=== PATIENT | female | born 1950 | race Caucasian/White ===

== ENCOUNTER → 2018-08-08 10:39 | Outpatient (CLI) | payer OTHER, SELFPAY ==
[2018-08-08 14:04] LABS: Free T4, Direct Thyroxine 1.52 ng/dL (0.78-2.19)
[2018-08-08 14:17] LABS: Thyroid Stimulating Hormone 1.67 uIU/mL (0.47-4.68)
[2018-08-08 14:26] LABS: Free T3, Triiodothyronine Free 3.43 pg/mL (2.77-5.27)
== END ==
PROVIDERS: PCP Student in an Organized Health Care Education/Training Program; Visit Provider Student in an Organized Health Care Education/Training Program
DX: E03.9 Hypothyroidism, unspecified (principal); E55.9 Vitamin D deficiency, unspecified; E78.2 Mixed hyperlipidemia
CPT/HCPCS: 36415; 84439; 84443; 84481

== ENCOUNTER → 2018-08-10 07:11 | Outpatient (CLI) | payer OTHER, SELFPAY ==
[2018-08-10 08:18] LABS: Appearance Urine UA CLEAR; Bilirubin Urine UA NEGATIVE (NEGATIVE); Color Urine UA YELLOW; Glucose Urine UA NEGATIVE (Negative); Ketones Urine UA NEGATIVE (NEGATIVE); Leukocyte Esterase Urine UA NEGATIVE (NEGATIVE); Nitrite Urine UA NEGATIVE (Negative); Occult Blood Urine UA 3+ (Negative); Protein Urine UA NEGATIVE (Negative); Specific Gravity Urine UA 1.025 (1.000-1.035); Urobilinogen Urine UA 0.2 E.U./dL (0.2); pH Urine UA 5.5 (4.5-8.0)
[2018-08-10 08:31] LABS: Blood Urea Nitrogen 28 mg/dL (7-17); Calcium 9.4 mg/dL (8.4-10.2); Carbon Dioxide 28 mmol/L (22-32); Chloride 102 mmol/L (98-107); Cholesterol 243 mg/dL (140-199); Creatine Kinase 88 U/L (30-135); Estimated Glomerular Filt Rate > 60.0 mL/min (>60); Glucose 103 mg/dL (80-110); HDL Cholesterol 73 mg/dL (40-60); HEMOLYSIS < 15 (0-50); LDL Cholesterol Calculated 156 mg/dL (<100); Magnesium 1.9 mg/dL (1.6-2.3); Potassium 4.6 mmol/L (3.4-5.1); Sodium 138 mmol/L (137-145); Triglycerides 69 mg/dL (35-150)
[2018-08-10 08:45] LABS: Bacteria Urine Few (2-10); Culture Indicated Urine Cult Not Indicated; RBC Urine 5-10/HPF (0-5/HPF); Squamous Epithelial Cell Urine 0-1 /HPF; WBC Urine 0-1/HPF (0-5/HPF)
[2018-08-10 08:47] LABS: Vitamin D 25 Hydroxy (D3) 37.3 ng/mL (30.0-100.0)
== END ==
PROVIDERS: PCP Student in an Organized Health Care Education/Training Program; Visit Provider Student in an Organized Health Care Education/Training Program
DX: E03.9 Hypothyroidism, unspecified (principal); E55.9 Vitamin D deficiency, unspecified; E78.2 Mixed hyperlipidemia; N05.9 Unspecified nephritic syndrome with unspecified morphologic changes; R25.2 Cramp and spasm
CPT/HCPCS: 36415; 80048; 80061; 81001; 82306; 82550; 83735

== ENCOUNTER 2019-07-07 10:28 | Emergency (ER) | payer OTHER, SELFPAY ==
[2019-07-07 11:02] VITALS: BP 146/73; PULSE 81; RESP 18; TEMP 36.9; O2SAT 99; BMI 29.0
--- NOTE | 2019-07-07 11:38 | DI.CT.S_ITS ---
PROCEDURE: CT KIDNEY URETER BLADDER (KUB) INDICATIONS: urinary retention TECHNIQUE: Noncontrast 5 mm thick sections acquired from the diaphragms to the symphysis. 5 mm thick coronal and sagittal reformats were then performed. For radiation dose reduction, the following was used: automated exposure control, adjustment of mA and/or kV according to patient size. COMPARISON: [facility], CT, THORAX WITH CONTRAST, 08/11/2010, 11:42. [facility], CT, THORAX WITHOUT CONTRAST, 04/20/2014, 9:14. FINDINGS: Image quality: Excellent. Lung bases: Lung bases are clear. Heart size is normal. Urinary system: Both kidneys are normal in size. No kidney stones. No hydronephrosis or perinephric fat stranding. Both ureters appear non-dilated throughout their expected courses. Bladder wall thickness is normal; no calcified bladder stones. Other solid organs: Liver is normal in size. Gallbladder appears normal. Pancreas is normal in contours. Spleen is normal in size. No new adrenal nodules, and the low density adrenal nodule on the right has not changed appreciably over [address] studies including from August of 2010. Peritoneum and bowel: Unenhanced bowel loops demonstrate normal wall thickness and caliber. No free fluid or air. Nodes and vessels: No retroperitoneal or mesenteric adenopathy by size criteria. Aorta and inferior vena cava are normal in caliber. Abdominal wall: No ventral hernias. Pelvis: No free pelvic fluid. No inguinal hernias or adenopathy. A Solis catheter empties the bladder lumen. Bones: No suspicious bony lesions. No vertebral body compression fractures. IMPRESSION: No sign of urinary retention however a Solis catheter is in place. No urinary tract stone is found. Stable appearing 2.0 x 3.3 cm right adrenal low-density nodule, from August of 2010. No followup recommended. Dictated by: Noe Ramírez M.D. on 07/07/2019 at 13:29 Approved by: Noe Ramírez M.D. on 07/07/2019 at 13:32
--- NOTE | 2019-07-07 11:44 | ED_ITS ---
HPI - Female Genitourinary <KEMI Darden - Last Filed: 07/07/19 21:24> General Chief complaint: Urogenital-Female Stated complaint: NEEDS TO GO TO BATHROOM/CANNOT,BLEEDING Time Seen by Provider: 07/07/19 11:20 Source: patient Mode of arrival: Ambulatory Limitations: no limitations History of Present Illness HPI Narrative: This is a 68-year-old female, nonsmoker, who presents to ED with significant other with chief complain of unable to urinate with nice flow but just dribbling and noticed blood when she went to toilet and wiped this morning. Patient denies history of any kidney disease or kidney stones. Patient reports the urination with good flow was yesterday morning. Patient does feel urgency but does not endorses pain, fever, nausea or vomiting, or flank pain. Patient denies severe constipation either. Related Data Home Medications Medication Instructions Recorded Confirmed aspirin 81 mg PO DAILY #0 08/10/10 07/07/19 Biotin 5,000 mcg 1 tab PO DAILY 09/26/18 07/07/19 Dandelion 1 cap PO DAILY 09/26/18 07/07/19 ascorbic acid (vitamin C) 500 mg 500 mg PO DAILY 09/26/18 07/07/19 chewable tablet cholecalciferol (vitamin D3) 50 4,000 unit PO DAILY 09/26/18 07/07/19 mcg (2,000 unit) capsule multivitamin 1 tab PO DAILY 09/26/18 07/07/19 Previous Rx's Medication Instructions Recorded albuterol sulfate 90 mcg/actuation 2 puff INHALATION Q4-6H PRN #8 gram 05/05/19 aerosol inhaler benzonatate 100 mg capsule 100 mg PO BID-TID PRN #20 cap 05/05/19 levothyroxine 88 mcg tablet 88 mcg PO QAM #90 tab 05/18/19 nitrofurantoin monohyd/m-cryst 100 mg PO BID 5 Days #10 cap 07/07/19 phenazopyridine [Pyridium] 100 mg PO Q8H #6 tab 07/07/19 Allergies Allergy/AdvReac Type Severity Reaction Status Date / Time venom-honey bee Allergy Severe Swelling Verified 07/07/19 11:02 [BEE VENOM (HONEY BEE)] at the site of the sting Penicillins [PENICILLINS] Allergy Unknown Patient Verified 07/07/19 11:02 was a child when it happened Review of Systems <KEMI Darden - Last Filed: 07/07/19 21:24> Review of Systems Narrative: General: Denies fever, chills, fatigue, malaise, sweats. HEENT: Denies sinus pain, ear pain, sore throat, difficulty swallowing, dizziness. Respiratory: Denies dyspnea, cough, wheezing, hemoptysis, sputum. Cardiovascular: Denies chest pain, palpitations, orthopnea, edema. Gastrointestinal: Denies nausea, vomiting, abdominal pain, diarrhea, constipation, melena. : Denies dysuria, frequency, incontinence, (+) hematuria, (+) urinary retention. Musculoskeletal: Denies weakness, joint pain or bony pain. Skin: Denies rash, skin lesions, or other. Neurologic: Denies weakness, headache, numbness, change in speech, confusion, seizures, incoordination. Psychiatric: No concerning psychosocial issues. 12-point review of systems is negative except for those stated above. Patient History <KEMI Darden - Last Filed: 07/07/19 21:24> Medical History Glomerulonephritis (Chronic) Hypothyroidism (Acute) Family History Father Pulmonary emphysema, unspecified emphysema type Smoking Status: Never smoker Substance Use Type: does not use Exam <KEMI Darden - Last Filed: 07/07/19 21:24> Narrative Exam Narrative: GEN: Alert, oriented x 3, well appearing and nourished, apprehensive. Head: Normal cephalic, atraumatic. No scalp or temporal tenderness, palpable ma ss or rash. EYES: Pupils are equal, round, and reactive to light and accommodation. Extraocular muscles are intact bilaterally. There is no subconjunctival hemorrhage, exudate and sclera non-icteric. ENT: Hearing grossly intact. Nose without bleeding, purulent discharge or deviation. Mucous membrane moist, no mucosal lesion. Throat without erythema, tonsillar hypertrophy or exudate. Uvula in midline, airway patent. Neck: Trachea in midline. No JVD, non-tender without lymphadenopathy. No masses or thyroid megaly. Supple, non-tender and no meningeal signs. CARDIAC: Normal regular rate and rhythm without murmurs, gallops, or rubs. No chest wall tenderness. No peripheral edema, cyanosis or pallor. Capillary refill is less than 2 seconds. RESPIRATORY: Lungs are clear to auscultate bilaterally. No cough, wheezes, rales, or rhonchi. No stridor, respiratory distress, increase work of breathing, or accessary muscle used. ABD: Abdomen soft, nontender and non-distended. No guarding or rebound tenderness to palpate. Bowel sounds are normal in all 4 quadrants. There is no palpable masses or organomegaly. EXT: Full painless ROM of all extremities with no loss of sensation, strength, effusion or edema. SKIN: Warm, dry, normal color for patient. No erythema, lesions or rash over visible areas. BACK: Nontender without deformity or crepitance. No flank tenderness. NEUROLOGICAL: Alert and oriented to place, time and person. Sensation and motor function intact bilaterally. No facial droops, dysphasia. PSYCHIATRIC: Good judgement and reason, without hallucinations, abnormal affect or abnormal behaviors during the examination. Initial Vital Signs Initial Vital Signs: Vital Signs Temperature 98.5 F 07/07/19 11:02 Pulse Rate 81 07/07/19 11:02 Respiratory Rate 18 07/07/19 11:02 Blood Pressure 146/73 H 07/07/19 11:02 Pulse Oximetry 99 07/07/19 11:02 <Alma Gonzalez DO - Last Filed: 07/10/19 08:12> Initial Vital Signs Initial Vital Signs: Vital Signs Temperature 98.5 F 07/07/19 11:02 Pulse Rate 81 07/07/19 11:02 Respiratory Rate 18 07/07/19 11:02 Blood Pressure 146/73 H 07/07/19 11:02 Pulse Oximetry 99 07/07/19 11:02 Scores <KEMI Darden - Last Filed: 07/07/19 21:24> GCS Independence coma scale eye opening: Spontaneous Sofiya coma scale verbal response: Orientated Independence coma scale motor response: Obey commands Sofiya coma scale total score: 15 Course <KEMI Darden - Last Filed: 07/07/19 21:24> Orders Ordered: Discontinued Medications Sodium Chloride (Normal Saline 0.9%) 1,000 mls @ 1,000 mls/hr IV BOLUS ONE Stop: 07/07/19 13:33 Last Infusion: 07/07/19 14:55 Dose: 0 mls/hr Documented by: Admin: 07/07/19 12:36 Dose: 1,000 mls/hr Documented by: ISABELLA Ceftriaxone Sodium/Dextrose (Rocephin) 1 gm in 50 mls @ 100 mls/hr IV NOW ONE Stop: 07/07/19 14:04 Last Admin: 07/07/19 13:57 Dose: Not Given Documented by: JOSEPHINE Ceftriaxone Sodium/Dextrose (Rocephin) 1 gm in 50 mls @ 100 mls/hr IV NOW ONE Stop: 07/07/19 14:06 Last Admin: 07/07/19 13:58 Dose: Not Given Documented by: JOSEPHINE Ceftriaxone Sodium/Dextrose (Rocephin) 1 gm in 50 mls @ 100 mls/hr IV NOW ONE Stop: 07/07/19 14:22 Last Infusion: 07/07/19 14:56 Dose: 0 mls/hr Documented by: Admin: 07/07/19 13:56 Dose: 100 mls/hr Documented by: JOSEPHINE Phenazopyridine HCl (Pyridium) 100 mg PO NOW ONE Stop: 07/07/19 13:36 Last Admin: 07/07/19 13:56 Dose: 100 mg Documented by: JOSEPHINE Vital Signs Vital signs: Vital Signs - 8 hr 07/07/19 14:30 Pulse Rate 71 Respiratory Rate 15 Blood Pressure [Right Arm] 141/68 H Pulse Oximetry 97 <Alma Gonzalez DO - Last Filed: 07/10/19 08:12> Orders Ordered: Discontinued Medications Sodium Chloride (Normal Saline 0.9%) 1,000 mls @ 1,000 mls/hr IV BOLUS ONE Stop: 07/07/19 13:33 Last Infusion: 07/07/19 14:55 Dose: 0 mls/hr Documented by: Admin: 07/07/19 12:36 Dose: 1,000 mls/hr Documented by: ISABELLA Ceftriaxone Sodium/Dextrose (Rocephin) 1 gm in 50 mls @ 100 mls/hr IV NOW ONE Stop: 07/07/19 14:04 Last Admin: 07/07/19 13:57 Dose: Not Given Documented by: JOSEPHINE Ceftriaxone Sodium/Dextrose (Rocephin) 1 gm in 50 mls @ 100 mls/hr IV NOW ONE Stop: 07/07/19 14:06 Last Admin: 07/07/19 13:58 Dose: Not Given Documented by: JOSEPHINE Ceftriaxone Sodium/Dextrose (Rocephin) 1 gm in 50 mls @ 100 mls/hr IV NOW ONE Stop: 07/07/19 14:22 Last Infusion: 07/07/19 14:56 Dose: 0 mls/hr Documented by: Admin: 07/07/19 13:56 Dose: 100 mls/hr Documented by: JOSEPHINE Phenazopyridine HCl (Pyridium) 100 mg PO NOW ONE Stop: 07/07/19 13:36 Last Admin: 07/07/19 13:56 Dose: 100 mg Documented by: JOSEPHINE Vital Signs Vital signs: Vital Signs - 8 hr 07/07/19 14:30 Pulse Rate 71 Respiratory Rate 15 Blood Pressure [Right Arm] 141/68 H Pulse Oximetry 97 MDM - Female Genitourinary <KEMI Darden - Last Filed: 07/07/19 21:24> Differential Diagnosis Differential diagnosis: Likely urinary tract infection, cystitis and other (Kidney stone, bladder neoplasm) Medical Records Attestation: I reviewed the patient's medical records. Lab Data Attestation: I reviewed the patient's lab results. Result diagrams: 07/07/19 12:42 07/07/19 12:42 Labs: Lab Results 07/07/19 07/07/19 07/07/19 Range/Units 12:06 12:42 12:42 WBC 9.9 (4.5-11.0) X10^3/uL RBC 4.45 (4.0-5.2) X10^6/uL Hgb 13.9 (12.0-16.0) g/dL Hct 41.3 (36-46) % MCV 93.0 (80-100) fL MCH 31.3 (26-34) PG MCHC 33.6 (30-36) % RDW 12.7 (11.6-14.8) % Plt Count 170 (150-400) X10^3/uL Neut % (Auto) 84.0 H (50-75) % Lymph % (Auto) 9.4 L (25-40) % Valley % (Auto) 6.2 (3-14) % Eos % (Auto) 0.1 L (2-4) % Baso % (Auto) 0.3 (0-2) % Neut # (Auto) 8300 H (4762-5615) /uL Lymph # (Auto) 900 L (0276-2116) /uL Valley # (Auto) 600 (0-900) /uL Eos # (Auto) 0 (0-450) /uL Baso # (Auto) 0 (0-100) /uL Sodium 137 (137-145) mmol/L Potassium 4.2 (3.4-5.1) mmol/L Chloride 102 (98-107) mmol/L Carbon Dioxide 27 (22-32) mmol/L BUN 20 H (7-17) mg/dL Creatinine 0.70 (0.52-1.04) mg/dL Estimated GFR > 60.0 (>60) mL/min BUN/Creatinine Ratio 28.6 H (6-22) Glucose 102 (80-110) mg/dL Calcium 9.4 (8.4-10.2) mg/dL Total Bilirubin 0.5 (0.2-1.3) mg/dL AST 30 (14-36) IU/L ALT 21 (<35) IU/L Alkaline Phosphatase 88 (38-126) U/L Total Creatine Kinase (30-135) U/L CK-MB (CK-2) CK-MB (CK-2) Rel Index Total Protein 7.6 (6.3-8.2) g/dL Albumin 4.2 (3.5-5.0) g/dL Globulin 3.4 (1.7-4.1) g/dL Albumin/Globulin Ratio 1.2 (1.0-2.8) Urine Color Brown Urine Appearance Turbid Urine pH 6.5 (4.5-8.0) Ur Specific [place] 1.025 (1.000-1.035) Urine Protein 3+ H (Negative) Urine Glucose (UA) Trace H (Negative) g/dL Urine Ketones Trace H (NEGATIVE) Urine Occult Blood 3+ H (Negative) Urine Nitrate Positive (Negative) Urine Bilirubin 2+ H (NEGATIVE) Ur Bilirubin Confirm Negative (Negative) Urine Urobilinogen 2.0 H (0.2) E.U./dL Ur Leukocyte Esterase 3+ H (NEGATIVE) Urine RBC >100/hpf H (0-5/HPF) Urine WBC 10-30/hpf H (0-5/HPF) Ur Squamous Epith Cells 0-1 /hpf (0-5/HPF) Amorphous Sediment 2+ Urine Bacteria Many (>30) H (None) Urine Mucus 1+ H (Negative) Ur Culture Indicated? Specimen cultured 07/07/19 Range/Units 12:42 WBC (4.5-11.0) X10^3/uL RBC (4.0-5.2) X10^6/uL Hgb (12.0-16.0) g/dL Hct (36-46) % MCV (80-100) fL MCH (26-34) PG MCHC (30-36) % RDW (11.6-14.8) % Plt Count (150-400) X10^3/uL Neut % (Auto) (50-75) % Lymph % (Auto) (25-40) % Valley % (Auto) (3-14) % Eos % (Auto) (2-4) % Baso % (Auto) (0-2) % Neut # (Auto) (9589-9193) /uL Lymph # (Auto) (0964-9695) /uL Valley # (Auto) (0-900) /uL Eos # (Auto) (0-450) /uL Baso # (Auto) (0-100) /uL Sodium (137-145) mmol/L Potassium (3.4-5.1) mmol/L Chloride (98-107) mmol/L Carbon Dioxide (22-32) mmol/L BUN (7-17) mg/dL Creatinine (0.52-1.04) mg/dL Estimated GFR (>60) mL/min BUN/Creatinine Ratio (6-22) Glucose (80-110) mg/dL Calcium (8.4-10.2) mg/dL Total Bilirubin (0.2-1.3) mg/dL AST (14-36) IU/L ALT (<35) IU/L Alkaline Phosphatase (38-126) U/L Total Creatine Kinase 84 (30-135) U/L CK-MB (CK-2) TNP CK-MB (CK-2) Rel Index TNP Total Protein (6.3-8.2) g/dL Albumin (3.5-5.0) g/dL Globulin (1.7-4.1) g/dL Albumin/Globulin Ratio (1.0-2.8) Urine Color Urine Appearance Urine pH (4.5-8.0) Ur Specific [place] (1.000-1.035) Urine Protein (Negative) Urine Glucose (UA) (Negative) g/dL Urine Ketones (NEGATIVE) Urine Occult Blood (Negative) Urine Nitrate (Negative) Urine Bilirubin (NEGATIVE) Ur Bilirubin Confirm (Negative) Urine Urobilinogen (0.2) E.U./dL Ur Leukocyte Esterase (NEGATIVE) Urine RBC (0-5/HPF) Urine WBC (0-5/HPF) Ur Squamous Epith Cells (0-5/HPF) Amorphous Sediment Urine Bacteria (None) Urine Mucus (Negative) Ur Culture Indicated? Imaging Data CT-KUB: Radiologist's Impression: [place] [address] CT Scan Report Signed Patient: Michelle Walton LMR#: [id number] : 2Acct:[id number] Age/Sex: 68 / FDate of Service: 07/07/19 Loc: ED Accession Number: [id number] Procedure: CT kidney ureter bladder (KUB) Ordering Provider: Jamaal Beasley PROCEDURE: CT KIDNEY URETER BLADDER (KUB) INDICATIONS: urinary retention TECHNIQUE: Noncontrast 5 mm thick sections acquired from the diaphragms to the symphysis. 5 mm thick coronal and sagittal reformats were then performed. For radiation dose reduction, the following was used: automated exposure control, adjustment of mA and/or kV according to patient size. COMPARISON: [facility], CT, THORAX WITH CONTRAST, 08/11/2010, 11:42. [facility], CT, THORAX WITHOUT CONTRAST, 04/20/2014, 9:14. FINDINGS: Image quality: Excellent. Lung bases: Lung bases are clear. Heart size is normal. Urinary system: Both kidneys are normal in size. No kidney stones. No hydronephrosis or perinephric fat stranding. Both ureters appear non-dilated throughout their expected courses. Bladder wall thickness is normal; no calcified bladder stones. Other solid organs: Liver is normal in size. Gallbladder appears normal. Pancreas is normal in contours. Spleen is normal in size. No new adrenal nodules, and the low density adrenal nodule on the right has not changed appreciably over [address] studies including from August of 2010. Peritoneum and bowel: Unenhanced bowel loops demonstrate normal wall thickness and caliber. No free fluid or air. Nodes and vessels: No retroperitoneal or mesenteric adenopathy by size criteria. Aorta and inferior vena cava are normal in caliber. Abdominal wall: No ventral hernias. Pelvis: No free pelvic fluid. No inguinal hernias or adenopathy. A Solis catheter empties the bladder lumen. Bones: No suspicious bony lesions. No vertebral body compression fractures. IMPRESSION: No sign of urinary retention however a Solis catheter is in place. No urinary tract stone is found. Stable appearing 2.0 x 3.3 cm right adrenal low- density nodule, from August of 2010. No followup recommended. Dictated by: Noe Ramírez M.D. on 07/07/2019 at 13:29 Approved by: Noe Ramírez M.D. on 07/07/2019 at 13:32 MDM Narrative Medical decision making narrative: This is a 68-year-old female who presents to ED with hematuria and unable to void for about 24 hour except dribbling in small amounts. Patient denied constitutional symptoms, abdominal pain, flank disc omfort. And showed about 150 mL of urine and Solis catheter was inserted and obtained dark reddish brown urine in Solis catheter. UA showed ketones, 3+ blood, 2+ bilirubin, many bacteria and 3+ urine leukocyte esterase without nitrates. Urine culture is pending. CT KUB was obtained no signs of urinary retention, no kidney stones, no hydronephrosis or perinephric fat stranding. Patient has known adrenal nodule on the right which has not changed since August 2010. It is likely her hematuria and dysuria is from a cystitis. Patient was treated with IV antibiotic medication Rocephin and discharged to home with nitrofurantoin b.i.d. dose for 5 day course and Pyridium PRN t.i.d. for 2 days for urinary discomfort. Return precautions were discussed with the patient and patient verbalized understanding and advised to follow-up with PCP. <Alma Gonzalez, DO - Last Filed: 07/10/19 08:12> Lab Data Labs: Lab Results 07/07/19 07/07/19 07/07/19 Range/Units 12:06 12:42 12:42 WBC 9.9 (4.5-11.0) X10^3/uL RBC 4.45 (4.0-5.2) X10^6/uL Hgb 13.9 (12.0-16.0) g/dL Hct 41.3 (36-46) % MCV 93.0 (80-100) fL MCH 31.3 (26-34) PG MCHC 33.6 (30-36) % RDW 12.7 (11.6-14.8) % Plt Count 170 (150-400) X10^3/uL Neut % (Auto) 84.0 H (50-75) % Lymph % (Auto) 9.4 L (25-40) % Valley % (Auto) 6.2 (3-14) % Eos % (Auto) 0.1 L (2-4) % Baso % (Auto) 0.3 (0-2) % Neut # (Auto) 8300 H (3858-2643) /uL Lymph # (Auto) 900 L (6080-3040) /uL Valley # (Auto) 600 (0-900) /uL Eos # (Auto) 0 (0-450) /uL Baso # (Auto) 0 (0-100) /uL Sodium 137 (137-145) mmol/L Potassium 4.2 (3.4-5.1) mmol/L Chloride 102 (98-107) mmol/L Carbon Dioxide 27 (22-32) mmol/L BUN 20 H (7-17) mg/dL Creatinine 0.70 (0.52-1.04) mg/dL Estimated GFR > 60.0 (>60) mL/min BUN/Creatinine Ratio 28.6 H (6-22) Glucose 102 (80-110) mg/dL Calcium 9.4 (8.4-10.2) mg/dL Total Bilirubin 0.5 (0.2-1.3) mg/dL AST 30 (14-36) IU/L ALT 21 (<35) IU/L Alkaline Phosphatase 88 (38-126) U/L Total Creatine Kinase (30-135) U/L CK-MB (CK-2) CK-MB (CK-2) Rel Index Total Protein 7.6 (6.3-8.2) g/dL Albumin 4.2 (3.5-5.0) g/dL Globulin 3.4 (1.7-4.1) g/dL Albumin/Globulin Ratio 1.2 (1.0-2.8) Urine Color Brown Urine Appearance Turbid Urine pH 6.5 (4.5-8.0) Ur Specific [place] 1.025 (1.000-1.035) Urine Protein 3+ H (Negative) Urine Glucose (UA) Trace H (Negative) g/dL Urine Ketones Trace H (NEGATIVE) Urine Occult Blood 3+ H (Negative) Urine Nitrate Positive (Negative) Urine Bilirubin 2+ H (NEGATIVE) Ur Bilirubin Confirm Negative (Negative) Urine Urobilinogen 2.0 H (0.2) E.U./dL Ur Leukocyte Esterase 3+ H (NEGATIVE) Urine RBC >100/hpf H (0-5/HPF) Urine WBC 10-30/hpf H (0-5/HPF) Ur Squamous Epith Cells 0-1 /hpf (0-5/HPF) Amorphous Sediment 2+ Urine Bacteria Many (>30) H (None) Urine Mucus 1+ H (Negative) Ur Culture Indicated? Specimen cultured 07/07/19 Range/Units 12:42 WBC (4.5-11.0) X10^3/uL RBC (4.0-5.2) X10^6/uL Hgb (12.0-16.0) g/dL Hct (36-46) % MCV (80-100) fL MCH (26-34) PG MCHC (30-36) % RDW (11.6-14.8) % Plt Count (150-400) X10^3/uL Neut % (Auto) (50-75) % Lymph % (Auto) (25-40) % Valley % (Auto) (3-14) % Eos % (Auto) (2-4) % Baso % (Auto) (0-2) % Neut # (Auto) (3171-3330) /uL Lymph # (Auto) (4101-7758) /uL Valley # (Auto) (0-900) /uL Eos # (Auto) (0-450) /uL Baso # (Auto) (0-100) /uL Sodium (137-145) mmol/L Potassium (3.4-5.1) mmol/L Chloride (98-107) mmol/L Carbon Dioxide (22-32) mmol/L BUN (7-17) mg/dL Creatinine (0.52-1.04) mg/dL Estimated GFR (>60) mL/min BUN/Creatinine Ratio (6-22) Glucose (80-110) mg/dL Calcium (8.4-10.2) mg/dL Total Bilirubin (0.2-1.3) mg/dL AST (14-36) IU/L ALT (<35) IU/L Alkaline Phosphatase (38-126) U/L Total Creatine Kinase 84 (30-135) U/L CK-MB (CK-2) TNP CK-MB (CK-2) Rel Index TNP Total Protein (6.3-8.2) g/dL Albumin (3.5-5.0) g/dL Globulin (1.7-4.1) g/dL Albumin/Globulin Ratio (1.0-2.8) Urine Color Urine Appearance Urine pH (4.5-8.0) Ur Specific [place] (1.000-1.035) Urine Protein (Negative) Urine Glucose (UA) (Negative) g/dL Urine Ketones (NEGATIVE) Urine Occult Blood (Negative) Urine Nitrate (Negative) Urine Bilirubin (NEGATIVE) Ur Bilirubin Confirm (Negative) Urine Urobilinogen (0.2) E.U./dL Ur Leukocyte Esterase (NEGATIVE) Urine RBC (0-5/HPF) Urine WBC (0-5/HPF) Ur Squamous Epith Cells (0-5/HPF) Amorphous Sediment Urine Bacteria (None) Urine Mucus (Negative) Ur Culture Indicated? Discharge Plan Departure Patient Disposition: Home Clinical Impression: Cystitis Discharge Date/Time: 07/07/19 14:59 Instructions: DI for Acute Cystitis Activity Restrictions/Additional Instructions: You have been diagnosed with [bladder infection and blood in your urine is likely due to bladder infection.]. What to do: *Take your medications as directed. Please start antibiotic medication tomorrow morning. You will be on nitrofurantoin twice a day for 5 days. You can use Pyridium for urinary discomfort as needed 3 times a day for 2 days. This medication will discolor your urine and other body fluids. Please increase water hydration. *Follow up with your primary care provider in 2-3 days, call for an appointment. Let them know you were seen in the ED and that we asked you to be seen in follow up. *Return to ED if you have any new, worsening, or concerning symptoms, such as [fever, flank pain, unable to tolerate medications, chest pain, breathing difficulty, or any acute concerns]. Prescriptions: New nitrofurantoin monohyd/m-cryst 100 mg capsule 100 mg PO BID 5 Days Qty: 10 RF: 0 phenazopyridine [Pyridium] 100 mg tablet 100 mg PO Q8H Qty: 6 RF: 0 No Action benzonatate [Tessalon Perles] 100 mg capsule 100 mg PO BID-TID PRN (Reason: cough) Qty: 20 RF: 0 albuterol sulfate 90 mcg/actuation HFA aerosol inhaler 2 puff INHALATION Q4-6H PRN (Reason: Cough and wheeze) Qty: 8 RF: 0 aspirin 81 mg Tablet,Delayed Release (Dr/Ec) 81 mg PO DAILY Qty: 0 RF: 0 levothyroxine 88 mcg tablet 88 mcg PO QAM Qty: 90 RF: 1 multivitamin tablet 1 tab PO DAILY RF: 0 ascorbic acid (vitamin C) 500 mg tablet,chewable 500 mg PO DAILY RF: 0 cholecalciferol (vitamin D3) 2,000 unit capsule 4,000 unit PO DAILY RF: 0 Biotin 5,000 mcg 1 tab PO DAILY RF: 0 Dandelion 1 cap PO DAILY RF: 0 Referrals: Sheila Maciel ARNP [Primary Care Provider] -
[2019-07-07 12:29] LABS: Appearance Urine UA TURBID; Bilirubin Urine UA 2+ (NEGATIVE); Color Urine UA BROWN; Glucose Urine UA TRACE g/dL (Negative); Ketones Urine UA TRACE (NEGATIVE); Leukocyte Esterase Urine UA 3+ (NEGATIVE); Nitrite Urine UA POSITIVE (Negative); Occult Blood Urine UA 3+ (Negative); Protein Urine UA 3+ (Negative); Specific Gravity Urine UA 1.025 (1.000-1.035)
[2019-07-07 12:31] LABS: pH Urine UA 6.5 (4.5-8.0)
[2019-07-07] MEDS: SODIUM CHLORIDE 0.9% 1,000 ML 1000 ML IV (12:36)
[2019-07-07 12:39] LABS: Ictotest Urine Negative (Negative); RBC Urine >100/HPF (0-5/HPF)
[2019-07-07 12:40] LABS: Amorphous Sediment Urine 2+; Bacteria Urine Many (>30); Culture Indicated Urine Specimen Cultured; Mucus Urine 1+ (Negative); Squamous Epithelial Cell Urine 0-1 /HPF (0-5/HPF); WBC Urine 10-30/HPF (0-5/HPF)
[2019-07-07 12:50] LABS: Add Manual Diff / Slide Review NO; Basophils Absolute Auto 0 /uL (0-100); Basophils Percent Auto 0.3 % (0-2); Eosinophils Absolute Auto 0 /uL (0-450); Eosinophils Percent Auto 0.1 % (2-4); Hematocrit 41.3 % (36-46); Hemoglobin 13.9 g/dL (12.0-16.0); Lymphocytes Absolute Auto 900 /uL (1100-4500); Lymphocytes Percent Auto 9.4 % (25-40); Mean Corpuscular HGB Conc 33.6 % (30-36); Mean Corpuscular Hemoglobin 31.3 PG (26-34); Monocytes Absolute Auto 600 /uL (0-900); Monocytes Percent Auto 6.2 % (3-14); Neutrophils Absolute Auto 8300 /uL (1500-7000); Platelet Count 170 X10^3/uL (150-400); Red Blood Cell Count 4.45 X10^6/uL (4.0-5.2); Red Cell Distribution Width 12.7 % (11.6-14.8); White Blood Cell Count 9.9 X10^3/uL (4.5-11.0)
[2019-07-07 13:07] LABS: Alanine Aminotransferase 21 IU/L (<35); Albumin 4.2 g/dL (3.5-5.0); Albumin Globulin Ratio 1.2 (1.0-2.8); Alkaline Phosphatase 88 U/L (38-126); Aspartate Aminotransferase 30 IU/L (14-36); BUN Creatinine Ratio 28.6 (6-22); Bilirubin Total 0.5 mg/dL (0.2-1.3); Blood Urea Nitrogen 20 mg/dL (7-17); Calcium 9.4 mg/dL (8.4-10.2); Carbon Dioxide 27 mmol/L (22-32); Chloride 102 mmol/L (98-107); Creatine Kinase 84 U/L (30-135); Estimated Glomerular Filt Rate > 60.0 mL/min (>60); Globulin 3.4 g/dL (1.7-4.1); Glucose 102 mg/dL (80-110); HEMOLYSIS < 15 (0-50); Potassium 4.2 mmol/L (3.4-5.1); Sodium 137 mmol/L (137-145); Total Protein 7.6 g/dL (6.3-8.2)
[2019-07-07] MEDS: PHENAZOPYRIDINE 100 MG TABLET PO (13:56)
[2019-07-07] MEDS: CEFTRIAXONE 1 GM/50 ML FROZ.PIGGY IV (13:56)
[2019-07-07 14:30] VITALS: BP 141/68; PULSE 71; RESP 15; O2SAT 97
== END 2019-07-07 14:59 | disposition home or self-care (01) ==
PROVIDERS: Emergency Provider Nurse Practitioner Family; PCP Nurse Practitioner
DX: N30.91 Cystitis, unspecified with hematuria (principal)
CPT/HCPCS: 36415; 51701; 51798; 74176; 80053; 81001; 82550; 85025; 87077; 87086; 87186; 96361; 96365; 99284; 99285

== ENCOUNTER → 2019-07-17 11:52 | Outpatient (CLI) | payer OTHER, SELFPAY ==
[2019-07-17 12:48] LABS: BUN Creatinine Ratio 27.5 (6-22); Blood Urea Nitrogen 22 mg/dL (7-17); Calcium 9.9 mg/dL (8.4-10.2); Carbon Dioxide 29 mmol/L (22-32); Chloride 102 mmol/L (98-107); Estimated Glomerular Filt Rate > 60.0 mL/min (>60); Glucose 118 mg/dL (80-110); HEMOLYSIS < 15 (0-50); Potassium 4.9 mmol/L (3.4-5.1); Sodium 139 mmol/L (137-145)
[2019-07-17 13:57] LABS: Thyroid Stimulating Hormone 0.31 uIU/mL (0.47-4.68)
== END ==
PROVIDERS: PCP Nurse Practitioner; Referring Provider Nurse Practitioner; Visit Provider Nurse Practitioner
DX: R25.2 Cramp and spasm (principal); E03.9 Hypothyroidism, unspecified
CPT/HCPCS: 36415; 80048; 83735; 84443

== ENCOUNTER → 2019-07-18 10:28 | Outpatient (CLI) | payer OTHER, SELFPAY ==
[2019-07-18 12:38] LABS: Free T3, Triiodothyronine Free 3.36 pg/mL (2.77-5.27)
== END ==
PROVIDERS: PCP Nurse Practitioner; Visit Provider Physician Assistant
DX: N89.8 Other specified noninflammatory disorders of vagina (principal); E03.9 Hypothyroidism, unspecified
CPT/HCPCS: 84439; 84481; 87210

== ENCOUNTER → 2019-07-22 13:16 | Outpatient (CLI) | payer OTHER, SELFPAY | PROVIDERS: PCP Nurse Practitioner; Visit Provider Nurse Practitioner | DX: N30.01 Acute cystitis with hematuria (principal) | CPT/HCPCS: 87077; 87086; 87186 ==

== ENCOUNTER → 2019-12-08 07:13 | Outpatient (CLI) | payer OTHER, SELFPAY ==
[2019-12-08 08:41] LABS: TSH w/ Reflex to FT4 3.84 uIU/mL (0.47-4.68)
== END ==
PROVIDERS: PCP Nurse Practitioner; Referring Provider Nurse Practitioner; Visit Provider Nurse Practitioner
DX: E03.9 Hypothyroidism, unspecified (principal)
CPT/HCPCS: 36415; 84443

== ENCOUNTER → 2020-05-04 09:14 | Outpatient (CLI) | payer OTHER, SELFPAY | PROVIDERS: PCP Nurse Practitioner; Referring Provider Nurse Practitioner; Visit Provider Nurse Practitioner | DX: E03.9 Hypothyroidism, unspecified (principal); E78.2 Mixed hyperlipidemia; Z79.899 Other long term (current) drug therapy | CPT/HCPCS: 36415; 84443 ==

== ENCOUNTER 2020-07-11 10:22 | Emergency (ER) | payer OTHER, SELFPAY ==
[2020-07-11] VITALS (12 sets, daily range): BP systolic 153–192; BP diastolic 66–80; PULSE 63–81; RESP 18–20; TEMP 36.4; O2SAT 97–100; BMI 29.4
[2020-07-11] MEDS: SODIUM CHLORIDE 0.9% 1,000 ML 1000 ML IV (10:57)
[2020-07-11 11:14] LABS: Add Manual Diff / Slide Review NO; Basophils Absolute Auto 0 /uL (0-100); Basophils Percent Auto 0.5 % (0-2); Eosinophils Absolute Auto 100 /uL (0-450); Hematocrit 40.2 % (36-46); Hemoglobin 13.7 g/dL (12.0-16.0); Lymphocytes Absolute Auto 1600 /uL (1100-4500); Lymphocytes Percent Auto 26.8 % (25-40); Mean Corpuscular HGB Conc 34.1 % (30-36); Mean Corpuscular Hemoglobin 31.8 PG (26-34); Mean Corpuscular Volume 93.3 fL (80-100); Monocytes Absolute Auto 500 /uL (0-900); Monocytes Percent Auto 8.4 % (3-14); Neutrophils Absolute Auto 3700 /uL (1500-7000); Neutrophils Percent Auto 63.3 % (50-75); Platelet Count 181 X10^3/uL (150-400); Red Cell Distribution Width 12.5 % (11.6-14.8); White Blood Cell Count 5.9 X10^3/uL (4.5-11.0)
--- NOTE | 2020-07-11 11:14 | ED_ITS ---
HPI - Dizziness General Chief Complaint: Dizziness Stated Complaint: Dizziness, fell yesterday Time Seen by Provider: 07/11/20 10:33 Source: patient Mode of arrival: Wheelchair Limitations: no limitations History of Present Illness HPI Narrative: Patient is a healthy 69-year-old female with history of hypothyroid presenting today with lightheadedness. She was doing her daily stretching and Pilates routine which she does on a regular basis when she was done she stood up and felt lightheaded. She denies any dizziness or syncopal episodes. No chest pain or palpitations. She has no numbness tingling weakness or focal deficits. She is quite nervous to be in the emergency department. Her mother about 2 weeks ago she has a lot of stress in her life. She denies any fever or chills no abdominal pain nausea or vomiting. She says she still does not feel quite great. She had 2 sips of a smoothie prior to her stretching routine. She denies any water intake or caffeine intake. MD complaint: lightheadedness Severity: mild Relieving factors: nothing Exacerbating factors: nothing Related Data Home Medications Medication Instructions Recorded Confirmed aspirin 81 mg PO DAILY #0 08/10/10 03/05/20 Biotin 5,000 mcg 1 tab PO DAILY 09/26/18 03/05/20 Dandelion 1 cap PO DAILY 09/26/18 03/05/20 ascorbic acid (vitamin C) 500 mg 500 mg PO DAILY 09/26/18 03/05/20 chewable tablet cholecalciferol (vitamin D3) 50 4,000 unit PO DAILY 09/26/18 03/05/20 mcg (2,000 unit) capsule multivitamin 1 tab PO DAILY 09/26/18 03/05/20 Previous Rx's Medication Instructions Recorded albuterol sulfate 90 mcg/actuation 2 puff INHALATION Q4-6H PRN #8 gram 05/05/19 aerosol inhaler levothyroxine 88 mcg tablet 88 mcg PO QAM #90 tab 03/22/20 Allergies Allergy/AdvReac Type Severity Reaction Status Date / Time venom-honey bee Allergy Severe Swelling Verified 03/05/20 08:20 [BEE VENOM (HONEY BEE)] at the site of the sting Penicillins [PENICILLINS] Allergy Unknown Patient Verified 03/05/20 08:20 was a child when it happened Review of Systems Review of Systems Narrative: GENERAL: Denies chills, fatigue, malaise, fever, sweats, travel HEENT: Denies sinus pain, ear pain, sore throat, difficulty swallowing, neck pain RESPIRATORY: Denies dyspnea, cough, wheezing, hemoptysis, sputum. CARDIOVASCULAR: Denies chest pain, palpitations, orthopnea, edema GASTROINTESTINAL: Denies nausea, vomiting, abdominal pain, diarrhea, constipation, melena. : Denies dysuria, frequency, incontinence, hematuria, urinary retention, flank pain. MUSCULOSKELETAL: Denies weakness, joint pain, or bony pain SKIN: No rash, no erythema, no pruritus NEUROLOGIC: See HPI PSYCHIATRIC: No concerning psychosocial issues. 12 point review of systems is negative except for those stated above and HPI Patient History Medical History (Updated 07/11/20 @ 12:58 by Alma Gonzalez DO) Abdominal muscle strain Gastritis Glomerulonephritis Hypothyroidism Pinguecula of left eye Vaginitis Family History Father Pulmonary emphysema, unspecified emphysema type Social History Smoking Status: Never smoker second hand exposure: No alcohol intake: current (4 oz of wine once a week.) substance use type: does not use Smoking Status: Never smoker Substance Use Type: does not use Exam Initial Vital Signs Initial Vital Signs: Vital Signs Temperature 97.6 F 07/11/20 10:38 Pulse Rate 73 07/11/20 10:38 Respiratory Rate 18 07/11/20 10:38 Blood Pressure 179/77 H 07/11/20 10:38 Pulse Oximetry 100 07/11/20 10:38 GENERAL: Alert well-appearing 61-year-old female and in no acute distress. HEENT: Head atraumatic,EOMI, pupils reactive, face symmetric, moist mucous me mbranes CARDIOVASCULAR: Regular rate and rhythm without murmurs, rubs or gallops. RESPIRATORY: Breath sounds equal bilaterally, no wheezes rales or rhonchi. ABDOMEN: Soft, nontender. Normoactive bowel sounds all 4 quadrants. No guarding or rebound. EXTREMITIES: Normal range of motion, no clubbing or edema. Neurovascularly intact NEUROLOGICAL: Alert and oriented x4.Normal gait and speech. Cranial nerves II through XII grossly intact. Good [id number], good [id number], strength equal bilaterally, no dysarthria or aphasia, sensation in tact to soft touch bilaterally, no visual changes, no facial droop SKIN: Warm, dry, no laceration, no petechiae, no rashes or lesions. Scores NIH Stroke Scale Level of Conciousness: Alert, keenly responsive Ask month/age: Answers both questions correctly. Open/close eyes, close hand: Performs both tasks correctly Best gaze horizontal: Normal Visual smith: No visual loss Facial palsy: Normal symetrical movement Left arm drift: No drift for full 10 sec Right arm drift: No drift for full 10 sec Left leg drift: No drift for full 5 sec Right leg drift: No drift for full 5 sec Limb ataxia: Absent Sensory on face/arms/legs: Normal, no sensory loss Best language: No aphasia, normal Dysarthria: Normal Extinction or inattention: No abnormality Total NIH Stroke scale score: 0 Course Orders Ordered: ED Orders 07/11/20 10:57 Complete Blood Count AUTO DIFF Stat Comprehensive Metabolic Panel Stat Troponin & CK Cardiac Panel Stat 07/11/20 12:14 CT head/brain wo con Stat Discontinued Medications Sodium Chloride (Normal Saline 0.9%) 1,000 mls @ 1,000 mls/hr IV CONT EILEEN Last Admin: 07/11/20 10:57 Dose: 1,000 mls/hr Documented by: CARLOS Vital Signs Vital signs: Vital Signs - 8 hr 07/11/20 10:38 07/11/20 10:46 07/11/20 10:48 Temperature 97.6 F Pulse Rate 73 71 76 Pulse Rate [Orthostatic Lying] Pulse Rate [Orthostatic Sitting] Pulse Rate [Orthostatic Standing] Respiratory Rate 18 20 Blood Pressure 179/77 H 179/77 H Blood Pressure [Orthostatic Lying] Blood Pressure [Orthostatic Sitting] Blood Pressure [Orthostatic Standing] Pulse Oximetry 100 100 100 07/11/20 10:55 07/11/20 10:56 07/11/20 10:58 Temperature Pulse Rate 67 81 76 Pulse Rate [Orthostatic Lying] Pulse Rate [Orthostatic Sitting] Pulse Rate [Orthostatic Standing] Respiratory Rate Blood Pressure 153/67 H 192/80 H 188/79 H Blood Pressure [Orthostatic Lying] Blood Pressure [Orthostatic Sitting] Blood Pressure [Orthostatic Standing] Pulse Oximetry 100 100 100 07/11/20 10:59 07/11/20 11:00 07/11/20 11:30 Temperature Pulse Rate 66 81 Pulse Rate [Orthostatic Lying] 63 Pulse Rate [Orthostatic Sitting] 72 Pulse Rate [Orthostatic Standing] 74 Respiratory Rate Blood Pressure Blood Pressure [Orthostatic Lying] 153/67 H Blood Pressure [Orthostatic Sitting] 192/80 H Blood Pressure [Orthostatic Standing] 188/79 H Pulse Oximetry 99 97 07/11/20 12:00 07/11/20 12:45 07/11/20 12:46 Temperature Pulse Rate 74 78 78 Pulse Rate [Orthostatic Lying] Pulse Rate [Orthostatic Sitting] Pulse Rate [Orthostatic Standing] Respiratory Rate Blood Pressure 156/66 H Blood Pressure [Orthostatic Lying] Blood Pressure [Orthostatic Sitting] Blood Pressure [Orthostatic Standing] Pulse Oximetry 99 98 99 MDM - Dizziness Lab Data Attestation: I reviewed the patient's lab results. Result diagrams: 07/11/20 10:57 07/11/20 10:57 Labs: Lab Results 07/11/20 07/11/20 Range/Units 10:57 10:57 WBC 5.9 (4.5-11.0) X10^3/uL RBC 4.30 (4.0-5.2) X10^6/uL Hgb 13.7 (12.0-16.0) g/dL Hct 40.2 (36-46) % MCV 93.3 (80-100) fL MCH 31.8 (26-34) PG MCHC 34.1 (30-36) % RDW 12.5 (11.6-14.8) % Plt Count 181 (150-400) X10^3/uL Neut % (Auto) 63.3 (50-75) % Lymph % (Auto) 26.8 (25-40) % [place] % (Auto) 8.4 (3-14) % Eos % (Auto) 1.0 L (2-4) % Baso % (Auto) 0.5 (0-2) % Neut # (Auto) 3700 (9464-9216) /uL Lymph # (Auto) 1600 (0516-1157) /uL [place] # (Auto) 500 (0-900) /uL Eos # (Auto) 100 (0-450) /uL Baso # (Auto) 0 (0-100) /uL Sodium 136 L (137-145) mmol/L Potassium 3.9 (3.4-5.1) mmol/L Chloride 103 (98-107) mmol/L Carbon Dioxide 29 (22-32) mmol/L BUN 21 H (7-17) mg/dL Creatinine 0.67 (0.52-1.04) mg/dL Estimated GFR > 60.0 (>60) mL/min BUN/Creatinine Ratio 31.3 H (6-22) Glucose 107 (80-110) mg/dL Calcium 9.5 (8.4-10.2) mg/dL Total Bilirubin 0.5 (0.2-1.3) mg/dL AST 33 (14-36) IU/L ALT 22 (<35) IU/L Alkaline Phosphatase 96 (38-126) U/L Total Creatine Kinase 107 (30-135) U/L CK-MB (CK-2) 1.53 (<2.37) ng/mL CK-MB (CK-2) Rel Index 1.4 L (1.5-5.0) % Troponin I < 0.012 (0.01-0.034) ng/mL Total Protein 7.5 (6.3-8.2) g/dL Albumin 4.1 (3.5-5.0) g/dL Globulin 3.4 (1.7-4.1) g/dL Albumin/Globulin Ratio 1.2 (1.0-2.8) Imaging Data CT scan - head: Radiologist's Impression: PROCEDURE: CT HEAD/BRAIN WO CON INDICATIONS: lightheaded TECHNIQUE: Noncontrast 4.5 mm thick angled axial sections acquired from the foramen magnum to the vertex, with coronal and sagittal reformats. For radiation dose reduction, the following was used: automated exposure control, adjustment of mA and/or kV according to patient size. COMPARISON: MR, [id number] W&WO CONTRAST, 08/12/2010, 15:52. FINDINGS: Image quality: Excellent. CSF spaces: Basal cisterns are patent. No extra-axial fluid collections. Ventricles are normal in size and shape. Brain: No midline shift. No intracranial masses or hemorrhage. [place]-white matter interface is normal. Skull and face: Calvarium and visualized facial bones are intact, without suspicious lesions. Sinuses: Visualized sinuses and mastoids are clear. IMPRESSION: 1. No acute intracranial abnormalities. Dictated by: Malena Pagan M.D. on 07/11/2020 at 12:38 Approved by: Malena Pagan M.D. on 07/11/2020 at 12:41 ECG Data Attestation: I personally reviewed and interpreted this ECG as follows: Prior ECG tracings: available for review Interpretation: Normal sinus rhythm rate 70 p.r. interval 164 QRS 84 QTC [address] changes or T-wave inversions similar to previous EKG MDM Narrative Medical decision making narrative: Patient does not actually have any dizziness only some lightheadedness. She was ambulatory in the ED without significant issue but is but still says she felt lightheaded. She has no focal deficits. Blood work is overall reassuring she received 1 L of IV fluids orthostatics are negative. Head CT done and is negative. At this time recommend outpatient follow-up. No concern for stroke a time. Discharge Plan Departure Patient Disposition: Home Clinical Impression: Vertigo Instructions: DI for Vertigo Activity Restrictions/Additional Instructions: *You have been diagnosed with vertigo *What to do: His symptoms today are not consistent with true vertigo. Possible from not eating or drinking off enough water. Be sure if you are exercising to drink enough water and ate and food. *Continue to take medications as directed *Follow up with your primary care provider in 2-3 days *Return to ER if you should have worsening dizziness, passing out, chest pain, palpitation or any new, worsening or concerning symptoms Prescriptions: No Action albuterol sulfate 90 mcg/actuation HFA aerosol inhaler 2 puff INHALATION Q4-6H PRN (Reason: Cough and wheeze) Qty: 8 RF: 0 aspirin 81 mg Tablet,Delayed Release (Dr/Ec) 81 mg PO DAILY Qty: 0 RF: 0 multivitamin tablet 1 tab PO DAILY RF: 0 ascorbic acid (vitamin C) 500 mg tablet,chewable 500 mg PO DAILY RF: 0 cholecalciferol (vitamin D3) 2,000 unit capsule 4,000 unit PO DAILY RF: 0 Biotin 5,000 mcg 1 tab PO DAILY RF: 0 Dandelion 1 cap PO DAILY RF: 0 levothyroxine 88 mcg tablet 88 mcg PO QAM Qty: 90 RF: 3 Referrals: Sheila Maciel ARNP [Primary Care Provider] -
[2020-07-11 11:25] LABS: Alanine Aminotransferase 22 IU/L (<35); Albumin 4.1 g/dL (3.5-5.0); Albumin Globulin Ratio 1.2 (1.0-2.8); Alkaline Phosphatase 96 U/L (38-126); Aspartate Aminotransferase 33 IU/L (14-36); BUN Creatinine Ratio 31.3 (6-22); Bilirubin Total 0.5 mg/dL (0.2-1.3); Blood Urea Nitrogen 21 mg/dL (7-17); Calcium 9.5 mg/dL (8.4-10.2); Carbon Dioxide 29 mmol/L (22-32); Chloride 103 mmol/L (98-107); Creatine Kinase 107 U/L (30-135); Estimated Glomerular Filt Rate > 60.0 mL/min (>60); Globulin 3.4 g/dL (1.7-4.1); Glucose 107 mg/dL (80-110); HEMOLYSIS < 15 (0-50); Potassium 3.9 mmol/L (3.4-5.1); Sodium 136 mmol/L (137-145); Total Protein 7.5 g/dL (6.3-8.2)
[2020-07-11 11:37] LABS: Troponin I < 0.012 ng/mL (0.01-0.034)
[2020-07-11 11:41] LABS: CKMB % Relative Index 1.4 % (1.5-5.0); Creatine Kinase MB 1.53 ng/mL (<2.37)
--- NOTE | 2020-07-11 12:14 | DI.CT.S_ITS ---
PROCEDURE: CT HEAD/BRAIN WO CON INDICATIONS: lightheaded TECHNIQUE: Noncontrast 4.5 mm thick angled axial sections acquired from the foramen magnum to the vertex, with coronal and sagittal reformats. For radiation dose reduction, the following was used: automated exposure control, adjustment of mA and/or kV according to patient size. COMPARISON: MR, [id number] W&WO CONTRAST, 08/12/2010, 15:52. FINDINGS: Image quality: Excellent. CSF spaces: Basal cisterns are patent. No extra-axial fluid collections. Ventricles are normal in size and shape. Brain: No midline shift. No intracranial masses or hemorrhage. [place]-white matter interface is normal. Skull and face: Calvarium and visualized facial bones are intact, without suspicious lesions. Sinuses: Visualized sinuses and mastoids are clear. IMPRESSION: 1. No acute intracranial abnormalities. Dictated by: Malena Pagan M.D. on 07/11/2020 at 12:38 Approved by: Malena Pagan M.D. on 07/11/2020 at 12:41
== END 2020-07-11 13:27 | disposition home or self-care (01) ==
PROVIDERS: Emergency Provider Emergency Medicine; PCP Nurse Practitioner
DX: R42 Dizziness and giddiness (principal); E03.9 Hypothyroidism, unspecified; Z79.82 Long term (current) use of aspirin
CPT/HCPCS: 36415; 70450; 80053; 82550; 82553; 84484; 85025; 93005; 96360; 96361; 99284

== ENCOUNTER → 2020-08-21 11:14 | Outpatient (CLI) | payer OTHER, SELFPAY ==
[2020-08-21] MEDS: COVID-19 VACC #1, MRNA(MOD) 100 MCG/0.5 ML VIAL IM (11:30)
== END ==
PROVIDERS: PCP Nurse Practitioner; Visit Provider Internal Medicine
DX: Z23 Encounter for immunization (principal)
CPT/HCPCS: 0011A; 91301

== ENCOUNTER → 2020-09-18 09:49 | Outpatient (CLI) | payer OTHER, SELFPAY ==
[2020-09-18] MEDS: COVID-19 VACC #2, MRNA(MOD) 100 MCG/0.5 ML VIAL IM (10:00)
== END ==
PROVIDERS: PCP Nurse Practitioner; Visit Provider Internal Medicine
DX: Z23 Encounter for immunization (principal)
CPT/HCPCS: 0012A; 91301

== ENCOUNTER → 2021-04-11 09:04 | Outpatient (CLI) | payer OTHER, SELFPAY ==
[2021-04-11 11:08] LABS: Thyroid Stimulating Hormone 3.04 uIU/mL (0.47-4.68)
== END ==
PROVIDERS: PCP Nurse Practitioner; Referring Provider Nurse Practitioner; Visit Provider Nurse Practitioner
DX: E03.9 Hypothyroidism, unspecified (principal); Z79.899 Other long term (current) drug therapy
CPT/HCPCS: 36415; 84443

== ENCOUNTER → 2021-08-07 12:28 | Outpatient (CLI) | payer OTHER, SELFPAY ==
[2021-08-07 13:54] LABS: Thyroid Stimulating Hormone 2.21 uIU/mL (0.47-4.68)
== END ==
PROVIDERS: PCP Nurse Practitioner; Referring Provider Nurse Practitioner; Visit Provider Nurse Practitioner
DX: E03.9 Hypothyroidism, unspecified (principal); Z79.899 Other long term (current) drug therapy
CPT/HCPCS: 36415; 84443

== ENCOUNTER → 2021-12-12 06:31 | Outpatient (CLI) | payer OTHER, SELFPAY ==
--- NOTE | 2021-12-12 06:33 | DI.US.S_ITS ---
PROCEDURE: US PELVIC COMPLETE INDICATIONS: Evaluation of white lesion in vagina TECHNIQUE: Real-time scanning was performed of the pelvic organs, with image documentation. Additional trans-labial scanning was performed. COMPARISON: [facility], CT, CT KIDNEY URETER BLADDER (KUB), 07/07/2019, 13:12. FINDINGS: Uterus: Uterus is anteverted and normal in size at 7.7 x 2.5 x 3.3 cm. The myometrium is homogeneous. The endometrium is not visualized. No abnormality is identified. Ovaries: The right ovary measures 2.0 x 1.31.6 cm. The left ovary measures 1.6 x 1.4 x 0 point cm. The ovaries have a normal sonographic appearance. No adnexal masses are seen. Other: No pathologic free abdominal or pelvic fluid. IMPRESSION: 1. No sonographic abnormalities are identified. We strive to produce accurate, complete, and clear reports of imaging services. To assist us in improving patient care, this report was composed using standard report templates and voice recognition software. Therefore, it may contain abnormal punctuation, insertions and/or omissions. Occasional wrong-word or sound-alike substitutions may occur. Though we review the report and make efforts to correct it, we do recommend that the report be read carefully in proper context to recognize any text inaccuracies. Dictated by: Malena Pagan M.D. on 12/12/2021 at 8:42 Approved by: Malena Pagan M.D. on 12/12/2021 at 8:49
== END ==
PROVIDERS: PCP Nurse Practitioner; Referring Provider Nurse Practitioner; Visit Provider Nurse Practitioner
DX: N89.8 Other specified noninflammatory disorders of vagina (principal); N94.9 Unspecified condition associated with female genital organs and menstrual cycle
CPT/HCPCS: 76856

== ENCOUNTER → 2022-08-07 07:17 | Outpatient (CLI) | payer OTHER, SELFPAY ==
[2022-08-07 09:06] LABS: Add Manual Diff / Slide Review NO; Basophils Absolute Auto 0 /uL (0-100); Basophils Percent Auto 0.5 % (0-2); Eosinophils Absolute Auto 100 /uL (0-450); Eosinophils Percent Auto 1.5 % (2-4); Hematocrit 42.5 % (36-46); Hemoglobin 14.3 g/dL (12.0-16.0); Lymphocytes Absolute Auto 1800 /uL (1100-4500); Lymphocytes Percent Auto 41.3 % (25-40); Mean Corpuscular HGB Conc 33.8 % (30-36); Mean Corpuscular Volume 91.7 fL (80-100); Monocytes Absolute Auto 400 /uL (0-900); Monocytes Percent Auto 9.4 % (3-14); Neutrophils Absolute Auto 2100 /uL (1500-7000); Neutrophils Percent Auto 47.3 % (50-75); Platelet Count 185 X10^3/uL (150-400); Red Blood Cell Count 4.63 X10^6/uL (4.0-5.2); Red Cell Distribution Width 13.2 % (11.6-14.8); White Blood Cell Count 4.5 X10^3/uL (4.5-11.0)
[2022-08-07 09:33] LABS: Alanine Aminotransferase 23 IU/L (<35); Albumin 4.1 g/dL (3.5-5.0); Albumin Globulin Ratio 1.3 (1.0-2.8); Alkaline Phosphatase 83 U/L (38-126); Aspartate Aminotransferase 25 IU/L (14-36); BUN Creatinine Ratio 29.7 (6-22); Bilirubin Total 0.4 mg/dL (0.2-1.3); Blood Urea Nitrogen 22 mg/dL (7-17); Calcium 9.3 mg/dL (8.4-10.2); Carbon Dioxide 28 mmol/L (22-32); Chloride 100 mmol/L (98-107); Cholesterol 271 mg/dL (140-199); Estimated Glomerular Filt Rate > 60 mL/min (>60); Globulin 3.2 g/dL (1.7-4.1); Glucose 102 mg/dL (80-110); HDL Cholesterol 98 mg/dL (40-60); HEMOLYSIS < 15 (0-50); LDL Cholesterol Calculated 153 mg/dL (<100); Potassium 4.3 mmol/L (3.4-5.1); Sodium 136 mmol/L (137-145); Total Protein 7.3 g/dL (6.3-8.2); Triglycerides 102 mg/dL (35-150)
== END ==
PROVIDERS: PCP Nurse Practitioner; Referring Provider Nurse Practitioner; Visit Provider Nurse Practitioner
DX: E03.9 Hypothyroidism, unspecified (principal); E78.2 Mixed hyperlipidemia; R03.0 Elevated blood-pressure reading, without diagnosis of hypertension; R53.83 Other fatigue; Z13.9 Encounter for screening, unspecified
CPT/HCPCS: 36415; 80053; 80061; 84443; 85025

== ENCOUNTER → 2023-06-29 06:51 | Outpatient (CLI) | payer OTHER, SELFPAY ==
[2023-06-29 08:50] LABS: Alanine Aminotransferase 22 IU/L (<35); Albumin Globulin Ratio 1.3 (1.0-2.8); Alkaline Phosphatase 73 U/L (38-126); Aspartate Aminotransferase 28 IU/L (14-36); BUN Creatinine Ratio 27.7 (6-22); Bilirubin Total 0.6 mg/dL (0.2-1.3); Blood Urea Nitrogen 18 mg/dL (7-17); Calcium 9.5 mg/dL (8.4-10.2); Carbon Dioxide 29 mmol/L (22-32); Chloride 101 mmol/L (98-107); Cholesterol 254 mg/dL (140-199); Estimated Glomerular Filt Rate > 60 mL/min (>60); Globulin 3.1 g/dL (1.7-4.1); Glucose 93 mg/dL (80-110); HDL Cholesterol 93 mg/dL (40-60); HEMOLYSIS < 15 (0-50); LDL Cholesterol Calculated 139 mg/dL (<100); Potassium 4.5 mmol/L (3.4-5.1); Sodium 137 mmol/L (137-145); Total Protein 7.1 g/dL (6.3-8.2); Triglycerides 111 mg/dL (35-150)
== END ==
PROVIDERS: PCP Nurse Practitioner; Referring Provider Nurse Practitioner; Visit Provider Nurse Practitioner
DX: E78.2 Mixed hyperlipidemia (principal); Z79.899 Other long term (current) drug therapy
CPT/HCPCS: 36415; 80053; 80061

== ENCOUNTER → 2023-10-04 06:52 | Outpatient (CLI) | payer OTHER, SELFPAY ==
[2023-10-04 08:17] LABS: Alanine Aminotransferase 24 IU/L (<35); Albumin 4.4 g/dL (3.5-5.0); Albumin Globulin Ratio 1.3 (1.0-2.8); Alkaline Phosphatase 76 U/L (38-126); Aspartate Aminotransferase 30 IU/L (14-36); BUN Creatinine Ratio 34.8 (6-22); Bilirubin Total 0.7 mg/dL (0.2-1.3); Blood Urea Nitrogen 23 mg/dL (7-17); Calcium 9.6 mg/dL (8.4-10.2); Carbon Dioxide 30 mmol/L (22-32); Chloride 106 mmol/L (98-107); Cholesterol 204 mg/dL (140-199); Estimated Glomerular Filt Rate > 60 mL/min (>60); Globulin 3.3 g/dL (1.7-4.1); Glucose 99 mg/dL (80-110); HDL Cholesterol 88 mg/dL (40-60); HEMOLYSIS < 15 (0-50); LDL Cholesterol Calculated 98 mg/dL (<100); Potassium 4.5 mmol/L (3.4-5.1); Sodium 139 mmol/L (137-145); Total Protein 7.7 g/dL (6.3-8.2); Triglycerides 90 mg/dL (35-150)
[2023-10-04 08:48] LABS: Thyroid Stimulating Hormone 3.64 uIU/mL (0.47-4.68)
[2023-10-05 15:54] LABS: Creatinine Urine Random 101.4 mg/dL; Microalbumi Creatinin Ratio Ur 63.1 ug/mg CR (<30); Microalbumin Urine Random 6.4 mg/dL (0-1.6)
== END ==
PROVIDERS: PCP Nurse Practitioner; Referring Provider Nurse Practitioner; Visit Provider Nurse Practitioner
DX: E78.2 Mixed hyperlipidemia (principal); E03.9 Hypothyroidism, unspecified; Z79.899 Other long term (current) drug therapy; Z87.448 Personal history of other diseases of urinary system
CPT/HCPCS: 36415; 80053; 80061; 82043; 82570; 84443

== ENCOUNTER → 2024-04-13 06:47 | Outpatient (CLI) | payer OTHER, SELFPAY ==
[2024-04-13 08:55] LABS: Cholesterol 175 mg/dL (140-199); HDL Cholesterol 104 mg/dL (40-60); LDL Cholesterol Calculated 58 mg/dL (<100); Triglycerides 63 mg/dL (35-150)
== END ==
PROVIDERS: PCP Nurse Practitioner; Referring Provider Nurse Practitioner Family; Visit Provider Nurse Practitioner Family
DX: E78.2 Mixed hyperlipidemia (principal)
CPT/HCPCS: 36415; 80061

== ENCOUNTER → 2024-04-21 06:40 | Outpatient (CLI) | payer OTHER, SELFPAY ==
[2024-04-21 08:07] LABS: BUN Creatinine Ratio 34.8 (6-22); Blood Urea Nitrogen 24 mg/dL (7-17); Calcium 9.4 mg/dL (8.4-10.2); Carbon Dioxide 29 mmol/L (22-32); Chloride 103 mmol/L (98-107); Estimated Glomerular Filt Rate > 60 mL/min (>60); Glucose 100 mg/dL (80-110); HEMOLYSIS < 15 (0-50); Potassium 4.2 mmol/L (3.4-5.1); Sodium 137 mmol/L (137-145)
== END ==
LOC: LAB 06:41
PROVIDERS: PCP Nurse Practitioner Family; Referring Provider Nurse Practitioner Family; Visit Provider Nurse Practitioner Family
DX: E03.9 Hypothyroidism, unspecified (principal); E78.2 Mixed hyperlipidemia; Z91.89 Other specified personal risk factors, not elsewhere classified
CPT/HCPCS: 36415; 80048

== ENCOUNTER → 2024-04-25 11:20 | Outpatient (CLI) | payer OTHER, SELFPAY ==
--- NOTE | 2024-04-25 11:22 | DI.RAD.S_ITS ---
PROCEDURE: XR KNEE LT 3V INDICATIONS: hyper-adduction of left knee moving sofa 3 days ago. TECHNIQUE: 3 views of the knee were acquired. COMPARISON: None. FINDINGS: Bones: No fractures or dislocations. No suspicious bony lesions. Soft tissues: No joint effusion. No suspicious soft tissue calcifications. IMPRESSION: No acute bony abnormality or significant effusion. Dictated by: Jose Daniel Membreno M.D. on 04/25/2024 at 11:45 Approved by: Jose Daniel Membreno M.D. on 04/25/2024 at 11:46
== END ==
PROVIDERS: PCP Nurse Practitioner Family; Referring Provider Physician Assistant Medical; Visit Provider Physician Assistant Medical
DX: S83.92XA Sprain of unspecified site of left knee, initial encounter (principal); X50.0XXA Overexertion from strenuous movement or load, initial encounter
CPT/HCPCS: 73562

== ENCOUNTER 2024-05-27 22:33 | Emergency (ER) | payer OTHER, SELFPAY ==
[2024-05-27 22:36] VITALS: BP 155/75; PULSE 87; RESP 18; TEMP 36.9; O2SAT 98; BMI 26.9
--- NOTE | 2024-05-27 22:53 | EKG_ITS ---
[place] [id number] [address] [place] [id number] Test Date: 2024-05-27 Pat Name: Michelle Walton Department: [facility] Room: Gender: Female Hydrotechnical Specialist: YESSI MOLINA : 1950 Requested By: Order Number: [id number] Reading MD: Joselo Ellis Measurements Intervals [place] Rate: 79 P: 29 IN: 170 QRS: -31 QRSD: 72 T: 65 QT: 350 QTc: 401 Interpretive Statements Normal sinus rhythm Left axis deviation Electronically Signed On 05-29-2024 11:14:18 PST by Joselo Ellis
[2024-05-27 23:02] LABS: Add Manual Diff / Slide Review NO; Basophils Absolute Auto 0 /uL (0-100); Basophils Percent Auto 0.4 % (0-2); Eosinophils Absolute Auto 0 /uL (0-450); Eosinophils Percent Auto 0.2 % (2-4); Hematocrit 42.4 % (36-46); Hemoglobin 14.2 g/dL (12.0-16.0); Lymphocytes Absolute Auto 1600 /uL (1100-4500); Lymphocytes Percent Auto 14.8 % (25-40); Mean Corpuscular HGB Conc 33.5 % (30-36); Mean Corpuscular Hemoglobin 31.1 PG (26-34); Mean Corpuscular Volume 92.6 fL (80-100); Monocytes Absolute Auto 1200 /uL (0-900); Monocytes Percent Auto 10.7 % (3-14); Neutrophils Absolute Auto 8100 /uL (1500-7000); Neutrophils Percent Auto 73.9 % (50-75); Platelet Count 179 X10^3/uL (150-400); Red Blood Cell Count 4.58 X10^6/uL (4.0-5.2); Red Cell Distribution Width 12.8 % (11.6-14.8); White Blood Cell Count 10.9 X10^3/uL (4.5-11.0)
[2024-05-27 23:06] VITALS: PULSE 74; RESP 18; O2SAT 98
[2024-05-27 23:13] LABS: Alanine Aminotransferase 26 IU/L (<35); Albumin 3.8 g/dL (3.5-5.0); Albumin Globulin Ratio 1.1 (1.0-2.8); Alkaline Phosphatase 85 U/L (38-126); Aspartate Aminotransferase 30 IU/L (14-36); BUN Creatinine Ratio 19.5 (6-22); Bilirubin Total 1.1 mg/dL (0.2-1.3); Blood Urea Nitrogen 15 mg/dL (7-17); Calcium 9.2 mg/dL (8.4-10.2); Carbon Dioxide 26 mmol/L (22-32); Chloride 99 mmol/L (98-107); Estimated Glomerular Filt Rate > 60 mL/min (>60); Globulin 3.4 g/dL (1.7-4.1); Glucose 122 mg/dL (80-110); HEMOLYSIS < 15 (0-50); Lipase 42 U/L (23-300); Potassium 3.8 mmol/L (3.4-5.1); Sodium 129 mmol/L (137-145); Total Protein 7.2 g/dL (6.3-8.2)
[2024-05-27 23:30] VITALS: PULSE 74; O2SAT 97
[2024-05-28] VITALS: PULSE 71; O2SAT 98
--- NOTE | 2024-05-28 00:37 | ED_ITS ---
HPI - Abdominal Pain General Chief Complaint: Abdominal Pain Stated Complaint: poss flu, no apitite Time Seen by Provider: 05/28/24 00:37 Source: patient Mode of arrival: Ambulatory History of Present Illness HPI narrative: Patient is a healthy active 73-year-old female history of hypothyroid hyperlipidemia presenting today with decreased appetite ongoing nausea. She denies any vomiting. She reports that she does not want to eat at all. She is trying to force herself but generally has zero appetite. She has no loss of smell or taste. She really just wants ice chips. She is forcing herself to drink electrolytes and water. She has absolutely no abdominal pain. She is passing excessive gas but has no diarrhea. No one else is sick she denies fever body aches sore throat or any other symptoms. He was concerned because she has not eaten anything in 48 hours. She was urinating without difficulty Related Data Home Medications Medication Instructions Recorded Confirmed ascorbic acid (vitamin C) 500 mg 500 mg PO DAILY 09/26/18 05/25/24 chewable tablet cholecalciferol (vitamin D3) 50 4,000 unit PO DAILY 09/26/18 05/25/24 mcg (2,000 unit) capsule multivitamin 1 tab PO DAILY 09/26/18 05/25/24 vitamin B complex 1 cap PO DAILY Good for you 04/25/24 05/25/24 zinc acetate 50 mg (zinc) capsule mg PO COVID 04/25/24 05/25/24 Previous Rx's Medication Instructions Recorded epinephrine 0.3 mg/0.3 mL 0.3 mg (0.3 mL) IM Q5-15M PRN bee 07/06/23 injection syringe sting #2 ea levothyroxine 88 mcg tablet 88 mcg PO QAM #90 tabs 07/06/23 rosuvastatin 5 mg tablet 10 mg (2 x 5 mg) PO DAILY #180 tabs 12/20/23 ondansetron 4 mg disintegrating 4 mg PO Q8H PRN nausea and 05/28/24 tablet vomiting #10 tabs Allergies Allergy/AdvReac Type Severity Reaction Status Date / Time venom-honey bee Allergy Severe Swelling Verified 05/25/24 07:54 [BEE VENOM (HONEY BEE)] at the site of the sting Penicillins [PENICILLINS] Allergy Unknown Patient Verified 05/25/24 07:54 was a child when it happened Patient History Medical History History of acute glomerulonephritis Bee sting allergy Acute bacterial sinusitis Habitual snoring Pinguecula of left eye Abdominal muscle strain Gastritis Vaginitis Hypothyroidism Muscle cramp, nocturnal Balance disorder Repetitive strain injury of both forearms Repetitive strain injury of both hands Glomerulonephritis 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) Glomerulonephritis (07/04/15) Family History Father Pulmonary emphysema, unspecified emphysema type Social History marital status: household members: spouse Smoking Status: Never smoker second hand exposure: No alcohol intake: current substance use type: does not use Smoking Status: Never smoker Exam Initial Vital Signs Initial Vital Signs: Vital Signs Temperature 98.4 F 05/27/24 22:36 Pulse Rate 87 05/27/24 22:36 Respiratory Rate 18 05/27/24 22:36 Blood Pressure 155/75 H 05/27/24 22:36 Pulse Oximetry 98 05/27/24 22:36 Oxygen Delivery Method Room Air 05/27/24 22:36 GENERAL: Alert well-appearing 73-year-old female and in no acute distress. HEENT: Head atraumatic,EOMI, pupils reactive, face symmetric, dry lips moist tongue CARDIOVASCULAR: Regular rate and rhythm without murmurs, rubs or gallops. RESPIRATORY: Breath sounds equal bilaterally, no wheezes rales or rhonchi. ABDOMEN: Soft, nontender. Normoactive bowel sounds all 4 quadrants. No guarding or rebound. EXTREMITIES: Normal range of motion, no clubbing or edema. Neurovascularly intact NEUROLOGICAL: Alert and oriented x4.Normal gait and speech. Cranial nerves II through XII grossly intact. SKIN: Warm, dry, no laceration, no petechiae, no rashes or lesions. Course Orders Ordered: ED Orders 05/27/24 22:46 EKG-12 Lead Stat 05/27/24 22:53 Complete Blood Count AUTO DIFF Stat Comprehensive Metabolic Panel Stat Lipase Stat 05/28/24 00:39 Urine Microscopic Stat Discontinued Medications Ondansetron HCl (Ondansetron 4 Mg/2 Ml Inj) 4 mg IV NOW PRN PRN Reason: Nausea And Vomiting Ondansetron HCl (Ondansetron 4 Mg Odt) 4 mg PO NOW PRN PRN Reason: Nausea And Vomiting Ondansetron HCl (Ondansetron 4 Mg Odt Prepack) 1 bottle MISC DIRECTED ONE Stop: 05/28/24 00:53 Last Admin: 05/28/24 01:03 Dose: 1 bottle Documented By: MELODIE Vital Signs Vital signs: Vital Signs - 8 hr 05/27/24 22:36 05/27/24 23:06 05/27/24 23:30 Temperature 98.4 F Pulse Rate 87 74 74 Respiratory Rate 18 18 Blood Pressure 155/75 H Pulse Oximetry 98 98 97 Oxygen Delivery Method Room Air 05/28/24 00:00 05/28/24 00:57 Temperature Pulse Rate 71 Respiratory Rate Blood Pressure 151/67 H Pulse Oximetry 98 97 Oxygen Delivery Method MDM - Abdominal Pain Lab Data 05/27/24 22:53 05/27/24 22:53 Labs: Lab Results 05/27/24 05/28/24 Range/Units 22:53 00:39 WBC 10.9 (4.5-11.0) X10^3/uL RBC 4.58 (4.0-5.2) X10^6/uL Hgb 14.2 (12.0-16.0) g/dL Hct 42.4 (36-46) % MCV 92.6 (80-100) fL MCH 31.1 (26-34) PG MCHC 33.5 (30-36) % RDW 12.8 (11.6-14.8) % Plt Count 179 (150-400) X10^3/uL Neut % (Auto) 73.9 (50-75) % Lymph % (Auto) 14.8 L (25-40) % Stevens % (Auto) 10.7 (3-14) % Eos % (Auto) 0.2 L (2-4) % Baso % (Auto) 0.4 (0-2) % Neut # (Auto) 8100 H (3794-8893) /uL Lymph # (Auto) 1600 (8800-9194) /uL Stevens # (Auto) 1200 H (0-900) /uL Eos # (Auto) 0 (0-450) /uL Baso # (Auto) 0 (0-100) /uL Sodium 129 L (137-145) mmol/L Potassium 3.8 (3.4-5.1) mmol/L Chloride 99 (98-107) mmol/L Carbon Dioxide 26 (22-32) mmol/L BUN 15 (7-17) mg/dL Creatinine 0.77 (0.52-1.04) mg/dL Estimated GFR > 60 (>60) mL/min BUN/Creatinine Ratio 19.5 (6-22) Glucose 122 H (80-110) mg/dL Calcium 9.2 (8.4-10.2) mg/dL Total Bilirubin 1.1 (0.2-1.3) mg/dL AST 30 (14-36) IU/L ALT 26 (<35) IU/L Alkaline Phosphatase 85 (38-126) U/L Total Protein 7.2 (6.3-8.2) g/dL Albumin 3.8 (3.5-5.0) g/dL Globulin 3.4 (1.7-4.1) g/dL Albumin/Globulin Ratio 1.1 (1.0-2.8) Lipase 42 (23-300) U/L Urine RBC 1-5/hpf D (0-5/HPF) Urine WBC 0-1/hpf (0-5/HPF) Ur Squamous Epith Cells 0-1 /hpf (0-5/HPF) Urine Bacteria Occasional (0-1) (None) Ur Culture Indicated? Cult not indicated Vol Urine Centrifuged 10ml (spun) Point of care testing: Urine Dip Bedside Urine Glucose Negative Bedside Urine Bilirubin - Negative Bedside Urine Ketone + 15 Urine Specific [place] 1.005 Bedside Urine Occult Blood +++ Bedside Urine pH 6.0 Bedside Urine Protein - Negative Bedside Urine Urobilinogen - Negative Bedside Urine Nitrite - Negative Bedside Urine Leukocytes - Negative Esterase ECG Data Attestation: I personally reviewed and interpreted this ECG as follows: Interpretation: Normal sinus rhythm rate 79 GA interval 170 QRS 72 QTC 401 no ischemic changes MDM Narrative Medical decision making narrative: MDM CC: Nausea loss of appetite Complicating co-morbidities: Hyperlipidemia hypothyroid Medical records reviewed: Recent if FP visit, which was to establish care she had a thyroid and lipids checked medications refilled no new significant complaints Differential considered: Viral illness gastroenteritis bowel obstruction Exam documented above, pertinent findings include: Patient is 73-year-old female appears well dry mucous membranes but abdomen is definitely soft nontender Lab Test results independently reviewed as above. Pertinent findings: Sodium 129, creatinine 0.77 Potassium 3.8 chloride 99 carbon dioxide 26 BUN 15 WBC 10.9 hemoglobin 14.2 hematocrit 42.4 platelets 179 Imaging studies independently reviewed: None Consultations: None Treatments: None Re-evaluations: Abdomen remains soft tolerating fluids Discussion: Patient is 73-year-old female presenting today with ongoing nausea. She is staying hydrated lips look a little dry. However she has no MERYL. She is some very mild hyponatremia with a sodium of 129. Discussed with her that she needs to drink more electrolytes encouraged bras. At this time abdomen is really soft she was absolutely no tenderness it has not distended. I do not feel a need for imaging at this time. Discussed with her oral rehydration technique. Also discussed viral testing but at this time does not seem necessary and she does not want it. Discharge Plan Departure Patient Disposition: Home Clinical Impression: Gastroenteritis Instructions: DI for Viral Gastroenteritis -- Adult Activity Restrictions/Additional Instructions: *You have been diagnosed with gastroenteritis *What to do: At this time increase fluids as tolerated. Recommend electrolyte fluids of your choice such as Pedialyte Gatorade Powerade. Recommend broth. Increase diet as tolerated *Continue to take medications as directed Zofran 4 mg every 8 hours for nausea or vomiting *Follow up with your primary care provider in 2-3 days or call [phone] *Return to ER if you should have increasing abdominal pain persistent vomiting dizziness lightheadedness or any new, worsening or concerning symptoms Prescriptions: New ondansetron 4 mg tablet,disintegrating 4 mg PO Q8H PRN (Reason: nausea and vomiting) Qty: 10 0RF No Action zinc acetate 50 mg (zinc) capsule PO vitamin B complex Capsule 1 cap PO DAILY rosuvastatin 5 mg tablet 10 mg PO DAILY Qty: 180 3RF Rx Instructions: Take 2 tabs daily to prevent risk of heart attack and stroke multivitamin tablet 1 tab PO DAILY ascorbic acid (vitamin C) 500 mg tablet,chewable 500 mg PO DAILY cholecalciferol (vitamin D3) 2,000 unit capsule 4,000 unit PO DAILY epinephrine 0.3 mg/0.3 mL syringe 0.3 mg IM Q5-15M PRN (Reason: bee sting) Qty: 2 4RF Rx Instructions: do not exceed 3 doses per episode levothyroxine 88 mcg tablet 88 mcg PO QAM Qty: 90 3RF Rx Instructions: Take 1 tab by mouth on an empty stomach daily 30 mins prior to eating. Referrals: Nicolle Bird FNP-BC [Primary Care Provider] - Stand Alone Forms: Patient Portal/API/Survey
[2024-05-28 00:57] VITALS: BP 151/67; O2SAT 97
[2024-05-28 01:01] LABS: Bacteria Urine Occasional (0-1); Culture Indicated Urine Cult Not Indicated; RBC Urine 1-5/HPF (0-5/HPF); Squamous Epithelial Cell Urine 0-1 /HPF (0-5/HPF); Urine Volume 10mL (spun); WBC Urine 0-1/HPF (0-5/HPF)
[2024-05-28] MEDS: ONDANSETRON 4 MG ODT PREPACK 1 BOTTLE MISC (01:03)
== END 2024-05-28 01:14 | disposition home or self-care (01) ==
PROVIDERS: Emergency Provider Emergency Medicine; PCP Nurse Practitioner Family
DX: K52.9 Noninfective gastroenteritis and colitis, unspecified (principal); R10.9 Unspecified abdominal pain
CPT/HCPCS: 36415; 80053; 81003; 81015; 83690; 85025; 93005; 99283; 99284

== ENCOUNTER → 2024-11-08 06:45 | Outpatient (CLI) | payer OTHER, SELFPAY ==
[2024-11-08 07:31] LABS: Add Manual Diff / Slide Review NO; Basophils Absolute Auto 0 /uL (0-100); Basophils Percent Auto 0.5 % (0-2); Eosinophils Absolute Auto 100 /uL (0-450); Eosinophils Percent Auto 1.8 % (2-4); Hematocrit 40.2 % (36-46); Hemoglobin 13.4 g/dL (12.0-16.0); Lymphocytes Absolute Auto 1800 /uL (1100-4500); Lymphocytes Percent Auto 39.9 % (25-40); Mean Corpuscular HGB Conc 33.3 % (30-36); Mean Corpuscular Hemoglobin 30.8 PG (26-34); Mean Corpuscular Volume 92.5 fL (80-100); Monocytes Absolute Auto 400 /uL (0-900); Monocytes Percent Auto 8.9 % (3-14); Neutrophils Absolute Auto 2200 /uL (1500-7000); Neutrophils Percent Auto 48.9 % (50-75); Platelet Count 155 X10^3/uL (150-400); Red Blood Cell Count 4.35 X10^6/uL (4.0-5.2); White Blood Cell Count 4.4 X10^3/uL (4.5-11.0)
[2024-11-08 08:04] LABS: Alanine Aminotransferase 32 IU/L (<35); Albumin 4.1 g/dL (3.5-5.0); Albumin Globulin Ratio 1.5 (1.0-2.8); Alkaline Phosphatase 79 U/L (38-126); Aspartate Aminotransferase 38 IU/L (14-36); BUN Creatinine Ratio 31.3 (6-22); Bilirubin Total 0.7 mg/dL (0.2-1.3); Blood Urea Nitrogen 21 mg/dL (7-17); Calcium 9.5 mg/dL (8.4-10.2); Carbon Dioxide 26 mmol/L (22-32); Chloride 103 mmol/L (98-107); Cholesterol 190 mg/dL (140-199); Estimated Glomerular Filt Rate > 60 mL/min (>60); Globulin 2.7 g/dL (1.7-4.1); Glucose 109 mg/dL (70-99); HDL Cholesterol 106 mg/dL (40-60); HEMOLYSIS < 15 (0-50); LDL Cholesterol Calculated 73 mg/dL (<100); Potassium 4.3 mmol/L (3.4-5.1); Sodium 137 mmol/L (137-145); Total Protein 6.8 g/dL (6.3-8.2); Triglycerides 57 mg/dL (35-150)
[2024-11-08 08:31] LABS: Thyroid Stimulating Hormone 3.35 uIU/mL (0.47-4.68)
== END ==
PROVIDERS: Nurse Practitioner; PCP Nurse Practitioner Family; Referring Provider Nurse Practitioner Family; Visit Provider Nurse Practitioner Family
DX: E03.9 Hypothyroidism, unspecified (principal); E78.2 Mixed hyperlipidemia; R53.83 Other fatigue; Z87.441 Personal history of nephrotic syndrome
CPT/HCPCS: 36415; 80053; 80061; 84443; 85025